=== PATIENT | male | born 1985 | race Two or more races ===

== ENCOUNTER 2017-04-19 08:17 | Emergency (ER) | payer SELFPAY | END 2017-04-19 09:53 | disposition home or self-care (01) | LOC: ER 08:17 | DX: R07.81 Pleurodynia (principal); M25.551 Pain in right hip; V43.52XA Car driver injured in collision with other type car in traffic accident, initial encounter; Y93.I9 Activity, other involving external motion; Y92.410 Unspecified street and highway as the place of occurrence of the external cause; Y99.8 Other external cause status | CPT/HCPCS: 71046; 71100; 72100; 73521; 99284 ==